=== PATIENT | male | born 1960 | race Caucasian/White ===

== ENCOUNTER 2022-02-03 21:49 | Emergency (ER) | payer MEDICARE ==
[2022-02-04 00:18] LABS: HEMOGLOBIN 14.5 gm/dl (14.0-17.5); RED BLOOD COUNT 5.01 M/UL (4.20-5.50); WHITE BLOOD COUNT 8.5 K/UL (4.5-11.0)
[2022-02-04 01:14] LABS: BUN/CREATININE RATIO 26 (0-10)
[2022-02-04] MEDS ORDERED: ZANAFLEX4 MG PO (01:39)
== END 2022-02-04 01:50 | disposition home or self-care (01) ==
LOC: ER1 21:49
PROVIDERS: Physician Assistant
DX: S29.012A Strain of muscle and tendon of back wall of thorax, initial encounter (principal); E78.5 Hyperlipidemia, unspecified; I10 Essential (primary) hypertension; Z88.0 Allergy status to penicillin; E66.01 Morbid (severe) obesity due to excess calories; X50.1XXA Overexertion from prolonged static or awkward postures, initial encounter
CPT/HCPCS: 71045; 80053; 82550; 82553; 84484; 85025; 85379; 93005; 96374; 99284; J1885